=== PATIENT | female | born 1965 | race Caucasian/White ===

== ENCOUNTER → 2016-10-11 | Outpatient (CLI) | payer OTHER ==
[~2016-10-11] MED LIST: VICODIN PO
--- NOTE | ~2016-10-11 | ST ---
Unit #: [id number] #: [id number] Patient: SAVANAH FIGUEROA [id number] [facility]. [address] [place], [place] [address] [id number] O MR#: [id number] NAME: SAVANAH FIGUEROA : 1965 SEX: F STUDY DATE/TIME: 10/11/2016 UNIT: [facility] ROOM: STUDY DESCRIPTION: Attending Physician: Solo Cardona M.D. Referring Physician: Solo Cardona M.D. Primary Care Physician: Rick Geiger D.O. CARDIOLOGY REPORT EXAM EKG portion of Cardiolite exercise stress test. REASON FOR EXAM Syncope. FINDINGS Baseline EKG is sinus rhythm with a ventricular rate of 76. The patient exercised on the treadmill according to the Prateek protocol for 7 minutes and 7 seconds, achieving a work level of 8.7 METs. Resting heart rate was 76. Maximal heart rate was 160 beats per minute, representing 94% of maximal predicted age heart rate. The patient's symptoms were mild fatigue. No arrhythmias or EKG changes were noted throughout the test. The test was stopped due to achieving maximal heart rate. IMPRESSION 1. This is a negative test. 2. There were no ST segment changes. 3. She experienced mild fatigue which resolved in the recovery phase. 4. Please correlate with Cardiolite imaging. Dictated by... Malathi Geiger APRN for Alondra Domingo TD: 10/11/2016 09:13 JOB #: [id number] CARDIOLOGY REPORT Page 1 of 1 X CARDIOLOGY REPORT
--- NOTE | ~2016-10-11 | TH ---
Unit #: [id number] #: [id number] Patient: SAVANAH FIGUEROA [id number] [address] [place] [facility]. [place], [place] [address] [id number] O MR#: [id number] NAME: SAVANAH FIGUEROA : 1965 SEX: F STUDY DATE/TIME: 10/11/2016 UNIT: [facility] ROOM: STUDY DESCRIPTION: Cardiolite imaging. Attending Physician: Solo Cardona M.D. Referring Physician: Solo Cardona M.D. Primary Care Physician: Rick Geiger D.O. CARDIOLOGY REPORT EXAM Cardiac stress test with Cardiolite imaging. INDICATION FOR STUDY Syncope, hypertension, dyslipidemia, diabetes, previous tobacco abuse, family history of coronary disease. SUMMARY The patient walked on a Prateek protocol to maximal effort. The patient received technetium 99m Cardiolite 11.55 and 33.9 mCi at rest and stress respectively. Appropriate views were obtained. FINDINGS The resting ECG shows nonspecific ST changes V5 and V6, with 0.[address] depression in leads 2 and AVF. With stress there is significant baseline artifact, an approximately 0.[address] depression seen in leads 2 and AVF, but otherwise no significant dysrhythmias, and no heart block. Post stress there appears to be [address] depression in leads 2, 3, AVF, V4 through V6. The patient completed 7 minutes on a Prateek protocol. Heart rate increased from 75 to 160 (94%) and blood pressure increased from 185/87 to 192/100. Perfusion images demonstrate intestinal artifact at rest, much less with stress. Otherwise perfusion is normal and equivalent between rest and stress. Planar images demonstrate no significant patient motion either at rest or stress. There is no significant lung uptake, left ventricular or right ventricular enlargement. Summed stress scores is zero. Gated perfusion and wall motion analysis demonstrates normal wall motion throughout the myocardium with end-diastolic volume 79 ml, ejection fraction 60%. It should be noted that the ventricle appears less vigorous than typically seen at this age. IMPRESSION 1. Abnormal stress ECG, but the resting ECG was abnormal also, thus, this is a false abnormal stress ECG. The ECG changes may be related to hypertension. 2. Hypertension at rest with suboptimal blood pressure response to stress. 3. Normal wall motion with excellent ejection fraction. 4. No evidence of ischemia or infarction. 5. Normal stress nuclear study. Unit #: [id number] #: [id number] Patient: SAVANAH FIGUEROA Dictated by... Yassine Broussard M.D. PJR/gz TD: 10/12/2016 07:59 JOB #: [id number] CARDIOLOGY REPORT Page 1 of 1 X Yassine Broussard MD CARDIOLOGY REPORT
--- NOTE | ~2016-10-11 | US37 ---
[facility] A Service of [facility] RADIOLOGY TEXT RESULTS PATIENT: SAVANAH FIGUEROA LOCATION: [facility] : [birth year] UNIT #: [id number] AGE: [address]: Solo Cardona MD SEX: F ORDER DR: [id number] [facility] [address] [place], [place] [address] [id number] O MR#: [id number] Acc #: [id number] NAME: SAVAANH FIGUEROA : 1965 SEX: F STUDY DATE/TIME: 10/11/2016 7:27 UNIT: [facility] ROOM: STUDY DESCRIPTION: US Carotid W/Doppler Bilateral Attending Physician: Solo Cardona M.D. Referring Physician: Solo Cardona M.D. Ordering Physician: Solo Cardona M.D. Primary Care Physician: Rick Geiger D.O. MEDICAL IMAGING REPORT This report is preliminary unless electronic signature is present EXAM Carotid duplex scan, 10/11/2016. HISTORY Carotid bruit. FINDINGS The right common carotid artery has no significant plaque. There is a small amount of heterogeneous plaque in the right carotid bulb that extends up into the proximal internal and external carotid arteries. Peak systolic velocity in the mid right internal carotid artery is 116 cm/sec, with an end diastolic velocity of 44 cm/sec. The ICA:CCA ratio on the right is 1.50. Peak systolic velocity in the right external carotid artery is 75 cm/sec. The right vertebral artery is patent with to-and-fro flow. The left common carotid artery has no significant plaque. There is a small amount of heterogeneous plaque in the left carotid bulb. There is a large amount of heterogeneous plaque in the proximal left internal carotid artery. Peak systolic velocity in the proximal left internal carotid artery is 553 cm/sec, with an end diastolic velocity of 243 cm/sec. The ICA:CCA ratio on the left is 8.76. Peak systolic velocity in the left external carotid artery is 78 cm/sec. The left vertebral artery is patent with antegrade flow. IMPRESSION 1. Plaque, but no significant stenosis (less than 50%) in the right internal carotid artery. 2. Severe stenosis (greater than or equal to 70%) of the left internal carotid artery. The left internal carotid artery stenosis appears to be greater than 80%, based on velocity criteria. 3. No significant stenosis of the external carotid arteries on either side. [facility] A Service of [facility] RADIOLOGY TEXT RESULTS PATIENT: SAVANAH FIGUEROA LOCATION: [facility] : [birth year] UNIT #: [id number] AGE: [address]: Solo Cardona MD SEX: F ORDER DR: 4. Antegrade and retrograde flow is noted in the right vertebral artery, suggesting possible proximal right subclavian artery occlusive disease. Patent left vertebral artery with antegrade flow. 5. These results were discussed with Dr. Cardona at the time of the study. Dictated by... Lucas Lucas M.D. THIS IS AN ELECTRONICALLY VERIFIED REPORT Lucas Lucas M.D. at 10/12/2016 7:37 AM CAMI/chelsy TD: 10/11/2016 14:06 JOB #: [id number] MEDICAL IMAGING REPORT Page 1 of 1 COPY
== END | disposition home or self-care (01) ==
LOC: CNUC 06:24
DX: R07.89 Other chest pain (principal); I25.10 Atherosclerotic heart disease of native coronary artery without angina pectoris; R55 Syncope and collapse; E11.9 Type 2 diabetes mellitus without complications; I10 Essential (primary) hypertension; R94.31 Abnormal electrocardiogram [ECG] [EKG]; I65.23 Occlusion and stenosis of bilateral carotid arteries
CPT/HCPCS: 78452; 93017; 93306; 93880; A9500